=== PATIENT | male | born 1975 | race Caucasian/White ===

== ENCOUNTER 2017-03-23 07:30 | Outpatient (CLI) | payer MEDICARE, MEDICAID ==
--- NOTE | 2017-03-23 09:59 | ULT ---
GALLBLADDER ULTRASOUND: Clinical history: Abnormal laboratory values with prior history of renal transplant and hematuria. FINDINGS: The liver demonstrates cirrhotic morphology. Spleen is mildly enlarged with a length between 14-15 cm , as demonstrated. Abdominal ascites is present. There is abnormal thickening of the gallbladder wall. Low level ==== of the gallbladder are present w hich may be on the basis of gravel-like cholelithiasis and/or sludge. Tello's sign is reported as ne gative by the chief commercial officer. No abnormal biliary ductal dilatation evident. There is a small left kidney and nonvisualization of r ight kidney. Retroperitoneal structures including portions of the aorta and pancreas are obscured by bowel content. IMPRESSION: 1. Cirrhotic morphology of the liver with evidence of splenomegaly and ascites. 2. Abnormal thickening of the gallbladder wall with intrinsic increased echogenicity. Findings indica te cholecystitis, acuity of which is not ascertained on the basis of this exam. Correlate with clinic al assessment. 3. Additional details as above. POS: [facility]
== END 2017-03-23 07:31 | disposition home or self-care (01) ==
LOC: ULT 07:30
PROVIDERS: ATTEND Family Medicine
DX: R79.89 Other specified abnormal findings of blood chemistry (principal); K74.60 Unspecified cirrhosis of liver; R16.1 Splenomegaly, not elsewhere classified; R18.8 Other ascites; K83.8 Other specified diseases of biliary tract; N27.0 Small kidney, unilateral
CPT/HCPCS: 76700

== ENCOUNTER 2017-10-05 07:37 | Outpatient (CLI) | payer MEDICARE, MEDICAID | END 2017-10-05 07:38 | disposition home or self-care (01) | LOC: BICULT 07:37 | PROVIDERS: ATTEND Internal Medicine | DX: K74.60 Unspecified cirrhosis of liver (principal); R94.5 Abnormal results of liver function studies; K82.8 Other specified diseases of gallbladder | CPT/HCPCS: 76700 ==

== ENCOUNTER 2018-05-17 08:00 | Outpatient (CLI) | payer MEDICARE, MEDICAID ==
--- NOTE | 2018-05-17 09:33 | ULT ---
RIGHT UPPER QUADRANT ABDOMINAL ULTRASOUND: Date: 05/17/18 COMPARISON: 03/23/17. HISTORY: Cirrhosis and abnormal liver function tests. TECHNIQUE: Multiplanar Cazares scale and color Doppler images were obtained in a right upper quadrant abdominal ult rasound. FINDINGS: The liver demonstrates a coarse echotexture with questionable nodularity of the contour of the liver. No intrahepatic ductal dilatation or focal liver lesions are seen. The gallbladder contains a thicke al wall without shadowing stones or sludge. The common bile duct is normal, measuring 5.0 mm. The pancreas could not be visualized. The spleen is normal in echogenicity without focal lesions and measures 12.0 cm in length. Neither kidney is able to be visualized. IMPRESSION: Coarse liver may be secondary to cirrhosis. No focal liver lesions are seen. POS: [facility]
== END 2018-05-17 08:01 | disposition home or self-care (01) ==
LOC: BICULT 08:00
PROVIDERS: ATTEND Internal Medicine
DX: K74.69 Other cirrhosis of liver (principal); R94.5 Abnormal results of liver function studies
CPT/HCPCS: 76700

== ENCOUNTER 2018-12-04 08:14 | Outpatient (CLI) | payer MEDICARE, MEDICAID ==
--- NOTE | 2018-12-04 09:24 | ULT ---
ULTRASOUND ABDOMEN COMPLETE: DATE: 12/04/2018. HISTORY: Elevated liver function enzymes and cirrhosis in a 43-year-old male. FINDINGS: Liver: No definite abnormality of parenchymal echogenicity or echotexture. Questionable nodular carter ns which could indicate cirrhosis. No hepatomegaly. Gallbladder: No gallstones or sludge identified. The gift consultant has measured an echogenic region be tween the hepatic parenchyma and gallbladder lumen as gallbladder wall thickening of 11 mm. This appe ars similar to 10/05/2017 and 05/17/2018. It is uncertain whether it is actual mural thickening or a fa t pad between the gallbladder and the liver. CT would be able to make the distinction. Negative son ographic Tello's sign. Common duct: 3 mm. Spleen: Enlarged. Lobular hilum. Pancreas: Nonspecific sonographic appearance. Kidneys: Not visualized. Abdominal aorta: No aneurysm. Inferior vena cava: poorly seen. IMPRESSION: 1. Questionable cirrhosis. 2. Splenomegaly. NICOLAS Aguero POS: [facility]
== END 2018-12-04 08:15 | disposition home or self-care (01) ==
LOC: BICULT 08:14
PROVIDERS: ATTEND Internal Medicine
DX: K74.69 Other cirrhosis of liver (principal); R94.5 Abnormal results of liver function studies; R16.1 Splenomegaly, not elsewhere classified
CPT/HCPCS: 76700

== ENCOUNTER 2020-06-02 07:03 | Outpatient (CLI) | payer MEDICARE, MEDICAID | END 2020-06-02 07:04 | disposition home or self-care (01) | LOC: BICULT 07:03 | PROVIDERS: ATTEND Internal Medicine | DX: K74.69 Other cirrhosis of liver (principal) | CPT/HCPCS: 93975 ==

== ENCOUNTER 2020-12-22 07:45 | Outpatient (CLI) | payer MEDICARE, MEDICAID | END 2020-12-22 07:46 | disposition home or self-care (01) | LOC: BICULT 07:45 | PROVIDERS: ATTEND Internal Medicine | DX: K74.69 Other cirrhosis of liver (principal) | CPT/HCPCS: 76700 ==

== ENCOUNTER 2021-07-16 07:03 | Outpatient (CLI) | payer MEDICARE, MEDICAID | END 2021-07-16 07:04 | disposition home or self-care (01) | LOC: BICULT 07:03 | PROVIDERS: ATTEND Internal Medicine | DX: K74.69 Other cirrhosis of liver (principal); K76.9 Liver disease, unspecified; R16.1 Splenomegaly, not elsewhere classified; K82.8 Other specified diseases of gallbladder | CPT/HCPCS: 76700 ==

== ENCOUNTER 2022-05-18 07:03 | Outpatient (CLI) | payer MEDICARE, MEDICAID | END 2022-05-18 07:04 | disposition home or self-care (01) | LOC: BICULT 07:03 | PROVIDERS: ATTEND Internal Medicine | DX: K74.69 Other cirrhosis of liver (principal) | CPT/HCPCS: 76700 ==

== ENCOUNTER 2023-04-13 07:02 | Outpatient (CLI) | payer MEDICARE, MEDICAID | END 2023-04-13 07:03 | disposition home or self-care (01) | LOC: BICULT 07:02 | PROVIDERS: ATTEND Internal Medicine | DX: K74.69 Other cirrhosis of liver (principal); K76.89 Other specified diseases of liver; K82.8 Other specified diseases of gallbladder; R16.1 Splenomegaly, not elsewhere classified | CPT/HCPCS: 76700 ==

== ENCOUNTER 2024-11-12 08:01 | Outpatient (CLI) | payer MEDICARE, MEDICAID | END 2024-11-12 08:02 | disposition home or self-care (01) | LOC: ULT 08:01 | PROVIDERS: ATTEND Internal Medicine | DX: K74.69 Other cirrhosis of liver (principal); D53.9 Nutritional anemia, unspecified; R19.5 Other fecal abnormalities | CPT/HCPCS: 76700 ==

== ENCOUNTER 2024-11-26 14:52 | Outpatient (CLI) | payer MEDICARE, MEDICAID | END 2024-11-26 14:53 | disposition home or self-care (01) | LOC: BICRAD 14:52 | PROVIDERS: ATTEND Family Medicine | DX: R05.1 Acute cough (principal) | CPT/HCPCS: 71046 ==

== ENCOUNTER 2024-12-19 08:27 | Day surgery (SDC) | payer MEDICARE, MEDICAID ==
[2024-12-19] MEDS ORDERED: Acetaminophen 325 MG TAB ONE (10:05)
[2024-12-19] MEDS: Acetaminophen 325 MG TAB PO SCH (10:06)
[2024-12-19 15:57] VITALS: BP 172/96; TEMP 97.8
== END 2024-12-19 15:59 | disposition home or self-care (01) ==
LOC: ONC/OP 08:27
PROVIDERS: ATTEND Physician Assistant Medical
DX: D50.9 Iron deficiency anemia, unspecified (principal); K74.60 Unspecified cirrhosis of liver; I12.9 Hypertensive chronic kidney disease with stage 1 through stage 4 chronic kidney disease, or unspecified chronic kidney disease; N18.9 Chronic kidney disease, unspecified; K31.819 Angiodysplasia of stomach and duodenum without bleeding
CPT/HCPCS: 36430; 86850; 86900; 86901; 86920; P9016

== ENCOUNTER 2025-01-31 06:14 | Day surgery (SDC) | payer MEDICARE, MEDICAID ==
[2025-01-30 12:50] VITALS: BMI 19.5
[2025-01-31] MEDS ORDERED: PROPOFOL 20 ML ONE (07:29)
[2025-01-31] MEDS ORDERED: GLYCOPYRROLATE/PF 0.2 MG/ML VIAL ONE (08:47)
[2025-01-31] MEDS ORDERED: PHENYLEPHRINE-NS 100 MCG/ML 10 ML SYRINGE ONE (09:24)
== END 2025-01-31 10:36 | disposition home or self-care (01) ==
LOC: SDC 06:14
PROVIDERS: ATTEND Internal Medicine
PROC: 0DJ08ZZ Inspection of Upper Intestinal Tract, Via Natural or Artificial Opening Endoscopic (ICD-10-PCS; principal; 2025-01-31)
DX: I85.00 Esophageal varices without bleeding (principal); K31.819 Angiodysplasia of stomach and duodenum without bleeding; K76.6 Portal hypertension; K31.89 Other diseases of stomach and duodenum; E78.00 Pure hypercholesterolemia, unspecified; N18.9 Chronic kidney disease, unspecified; Z94.0 Kidney transplant status; Z96.1 Presence of intraocular lens; Z90.89 Acquired absence of other organs; Z79.899 Other long term (current) drug therapy
CPT/HCPCS: 43235; J2250; J2704; J3490